=== PATIENT | male | born 1950 | race Caucasian/White ===

== ENCOUNTER → 2020-12-17 | Outpatient (CLI) | payer OTHER ==
[~2020-12-17] MED LIST: ASA81BEC PO; CARVEDILOL12.5 MG PO; ENTRESTO 49 MG1 EACH PO; FUROSEMIDE 20 M20 M1 PO; K-DUR10 MEQ PO; LIPITOR 40 MG T40 M1 PO; PACERONE 200 M200 M1 PO; PROAIR HFA8.5 GM INH; SPIRONOLACTONE25 M1 PO; XARELTO20 MG PO
[2020-12-17 10:02] LABS: HEMATOCRIT 39.8 % (42.0-52.0); HEMOGLOBIN 13.4 gm/dL (14.0-18.0); MCHC 33.6 g/dL (28.0-37.0); MCV 98.2 fL (80.0-100.0); MPV 7.7 fl. (7.2-11.1); RBC 4.06 mil/uL (4.50-6.00); RDW-CV 14.6 % (10.5-14.5); WBC 8.3 thou/uL (4.0-11.0)
[2020-12-17 10:22] LABS: ALBUMIN 3.2 g/dL (3.4-5.0); CALCIUM 8.8 mg/dL (8.5-10.1); CREATININE 1.1 mg/dL (0.6-1.3); POTASSIUM 4.5 mmol/L (3.5-5.1); TOTAL BILIRUBIN 0.5 mg/dL (<0.1-1.0); TOTAL PROTEIN 6.1 g/dL (6.4-8.2)
[2020-12-17 10:28] LABS: URINE BILIRUBIN NEGATIVE (Negative); URINE BLOOD NEGATIVE (Negative); URINE CLARITY CLEAR; URINE COLOR YELLOW; URINE GLUCOSE-RANDOM NEGATIVE (Negative); URINE KETONES NEGATIVE (Negative); URINE LEUKOCYTES-REFLEX NEGATIVE (Negative); URINE NITRITE-REFLEX NEGATIVE (Negative); URINE PROTEIN NEGATIVE (Negative); URINE SPECIFIC GRAVITY <= 1.005 (1.005-1.030); URINE UROBILINOGEN 0.2 E.U./dl (0.2-1.0)
[2020-12-17 10:34] LABS: INR 1.2
== END ==
LOC: M.LAB 09:30
PROVIDERS: ATTEND Orthopaedic Surgery
DX: Z01.812 Encounter for preprocedural laboratory examination (principal); Z20.822 Contact with and (suspected) exposure to COVID-19; M16.11 Unilateral primary osteoarthritis, right hip

== ENCOUNTER → 2020-12-22 | Day surgery (SDC) | payer OTHER ==
[~2020-12-22] VITALS: Ht 175.3 cm; Wt 86.2 kg
[2020-12-22 08:00] VITALS: BP 122/69
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
== END | disposition home or self-care (01) ==
LOC: M.PRE 12-11 10:24 → M.SUR 07:15 → M.PRE 07:15 → M.TBA 07:15 → M.PRE 10:27 → EDSTATUS 12:35 → M.PRE 13:12
PROVIDERS: ATTEND Internal Medicine
DX: M16.11 Unilateral primary osteoarthritis, right hip (principal); Z53.8 Procedure and treatment not carried out for other reasons; I25.119 Atherosclerotic heart disease of native coronary artery with unspecified angina pectoris; I48.0 Paroxysmal atrial fibrillation; I11.0 Hypertensive heart disease with heart failure; I50.9 Heart failure, unspecified; I25.5 Ischemic cardiomyopathy; E78.5 Hyperlipidemia, unspecified; I35.0 Nonrheumatic aortic (valve) stenosis; F17.210 Nicotine dependence, cigarettes, uncomplicated; Z79.899 Other long term (current) drug therapy; Z96.651 Presence of right artificial knee joint; Z96.642 Presence of left artificial hip joint; Z98.890 Other specified postprocedural states; Z95.1 Presence of aortocoronary bypass graft

== ENCOUNTER 2021-01-05 06:51 | Inpatient (IN) | payer OTHER ==
[~2021-01-05] VITALS: Ht 175.3 cm; Wt 86.2 kg
[2021-01-05 07:30] VITALS: BP 94/61
[2021-01-05 17:27] VITALS: BP 102/58
--- NOTE | 2021-01-05 17:36 | NUR ---
PT REMAINED ALERT AND ORIENTED. PT ADMITTED POST OP HIP REPLACEMENT. PAIN ASSESSED AND MEDS GIVEN ORDERED. PT EDUCATED ON USING CALL LIGHT WHEN NEEDING ASSISTANCE AND FALL RISK PRECAUTIONS. PT VERBALIZED UNDERSTANDING. FAMILY AT BEDSIDE.
[2021-01-05 20:21] VITALS: BP 111/59
[2021-01-06] VITALS (9 sets, daily range): BP systolic 90–114; BP diastolic 48–64
[2021-01-06 06:11] LABS: HEMATOCRIT 30.7 % (42.0-52.0); HEMOGLOBIN 10.2 gm/dL (14.0-18.0); MCH 32.2 pg (26.0-34.0); MCHC 33.3 g/dL (28.0-37.0); MCV 96.6 fL (80.0-100.0); MPV 8.3 fl. (7.2-11.1); RBC 3.18 mil/uL (4.50-6.00); RDW-CV 13.7 % (10.5-14.5); WBC 16.1 thou/uL (4.0-11.0)
--- NOTE | 2021-01-06 06:11 | NUR ---
PT GOT UP USING WALKER TO RESTROOM. HE IS ALERT AND ORIENTED, PAIN WELL MANAGED WITH HYDROCODONE. HE IS CURRENTLY ON 2L-O2, ICE PACK TO INCISION SITE, DRESSING C/D/I. SRINI HOSE, FOOT PUMPS AND ICE IN PLACE.
[2021-01-06 06:21] LABS: CALCIUM 7.8 mg/dL (8.5-10.1); CREATININE 0.9 mg/dL (0.6-1.3); POTASSIUM 4.6 mmol/L (3.5-5.1)
[2021-01-06] MEDS ORDERED: METAMUCIL PACK3.4 GM PO (09:51)
[2021-01-06] MEDS ORDERED: COLACE100 MG PO (09:51)
--- NOTE | 2021-01-06 10:21 | NUR ---
HEMOVAC REMOVED PER ORTHO ORDERS
--- NOTE | 2021-01-06 11:29 | NUR ---
PT.TO DISCHARGE TODAY WITH HOME HEALTH PHYSICAL THERAPY. SPOKE WITH HIM AND SON,KWAME. THEY WANTED TO USE [facility]. SPOKE WITH INTAKE AND THEY DO NOT TAKE PTS INSURANCE. [facility] [phone], OUT OF GRAY, GOES TO [facility] AND TAKE HIS INSURANCE. PT.AGREEABLE TO USE [facility] . THEY SAID THEY WOULD RUN HIS INSURANCE AND MAKE SURE THEY TAKE HIS PLAN. FAXED FACE SHEET, H&P,OP REPORT AND DISCHARGE SUMMARY WITH MEDS TO INTAKE [phone]. PT.HAS A FWW FOR HOME USE. IS NORMALLY INDEPENDENT. SON LIVES WITH HIM. PT.SAID HE NORMALLY TAKES XARELTO 20MG DAILY AND ASA DAILY FOR HIS HEART. CM CALLED [facility] AND THEY HAVE PERCOCET PRESCRIPTION FOR PT.E-SCRIPTED BY . PT.INFORMED.
--- NOTE | 2021-01-06 12:00 | NUR ---
[facility] CALLED. SAID THEY RAN HIS INSURANCE INFORMATION AND THEY DO NOT TAKE HIS SPECIFIC PLAN. CM SPOKE IWTH PT.ABOUT DOING OUTPT.THERAPY. HE SAID HE HAD NO ONE TO DRIVE HIM. KERRY CALLED [facility] BACK AND SPOKE WITH ALVA. SHE KNEW OF PT.AND KNEW HE HAD BEEN COMING TO THEIR OUTPT.THERAPY PRE OP. SHE DISCUSSED WITH HER BOSS. SHE SAID THEY WOULD TRY TO RUN HIS INSURANCE. IF THEY DO NOT CONTRACT WITH THEM, THEY WILL TAKE HIM ANYWAY, SINCE IT IS ONLY FOR 2 WEEKS. PT.AND SON INFORMED. THEY WERE APPRECIATIVE.
--- NOTE | 2021-01-06 12:37 | NUR ---
PT GIVEN DISCHARGE INFORMATION. PRESCRIPTIONS SENT TO PHARMACY PER PHYSICIAN. IV REMOVED. PT BELONGINGS GATHERED. HOME HEALTH SET UP. FALL RISK PRECAUTIONS IN PLACE. HOURLY ROUNDING COMPLETED. PT LEFT VIA WHEELCHAIR WITH NURSING STAFF TO HOME WITH HOME HEALTH.
--- NOTE | 2021-01-06 12:48 | OP ---
[facility] [address] [place] [address] OPERATIVE REPORT Name: CHERYLDONOVANAARTI K Room: [address] IN [place]#: [id number] Admission: 01/05/21 Attend Phys: Ashely Arnett Discharge: 01/06/21 Date of : 50 Report #: [id number] THIS REPORT FOR: cc: Main Sanchez MD, Matthew D MD ~ Greiner, Robert F. II DO DATE OF SERVICE: 01/05/2021 PREOPERATIVE DIAGNOSIS: Right hip osteoarthritis. POSTOPERATIVE DIAGNOSIS: Right hip osteoarthritis. PROCEDURE: Right total hip arthroplasty. SURGEON: Jalil Kimball II, DO CONSOLE ASSEMBLER: BECKI Blake ANESTHESIA: General endotracheal. ESTIMATED BLOOD LOSS: 200 mL. ANTIBIOTICS: Ancef preoperatively. DRAINS: Medium Hemovac. COMPLICATIONS: None. CONDITION OF THE PATIENT: Stable to recovery room. IMPLANTS: Listed in operative record and progress note. BRIEF HISTORY: The patient was seen in the preoperative area. Preoperative H and P was performed. Site was marked, questions were answered. Risks and benefits were discussed with the patient in detail about surgery. The patient wished to proceed, assuming all risks. DESCRIPTION OF PROCEDURE: The patient was taken to the operative suite, placed supine on the operating table, given appropriate anesthesia. The patient's operative hip was placed in the [place] table leg parham and sterilely prepped and draped in the supine position. Surgery began by longitudinal incision over the anterior portion of the hip. This was carried down to the subcutaneous tissues. A small blanquita was made in the tensor fascia. It was then split along its fibers and retracted laterally. An H capsulotomy was then performed and careful hemostasis was maintained with electrocautery and Aquamantys[place] [address] OPERATIVE REPORT Name: AARTI QURESHI Room: [address]#: [id number] Admission: 01/05/21 Attend Phys: Ashely Arnett Discharge: 01/06/21 Date of : 50 Report #: [id number] cutting alignment guide was then checked with fluoroscopic guidance. Appropriate cut was made in the head and neck and this was removed. Attention was turned to the acetabulum. Excess labrum was removed as well as osteophytes. It was reamed in sequential fashion up to the appropriate size. This showed excellent bleeding bone and excellent position on fluoroscopic guidance. The acetabular cup was then malleted into position and secured with cancellous screws. Metal liner was then applied. The patient's leg was then rotated and extended in the Alb[place] table to expose the femur. It was then broached in sequential fashion up to appropriate size. Appropriate neck was then trialed with appropriate head length and shown to have excellent fit and fill, and excellent stability of the hip through all range of motion. These trials were then removed. The final stem was then malleted into position and the final head and neck was then malleted in position. It was reduced in appropriate fashion, checked with C-arm for appropriate leg length, shown to have excellent leg length throughout the exam without evidence of dislocation upon range of motion and shuck testing. Wound was then copiously irrigated. Hemostasis was obtained with electrocautery and Aquamantys. Pain cocktail was injected. The H capsulotomy was then closed with #1 Vicryl in [id number] fashion. Tensor fascia was closed with #1 Vicryl in running fashion. Skin was closed with 2-0 Vicryl and running 3-0 Monocryl. Dermabond and sterile dressing applied. The patient transported to recovery room in stable condition. Counts were correct throughout the procedure. <ELECTRONICALLY SIGNED> By: Jalil Kimball II, DO 01/06/21 1248 [id number] 05Jalil Kimball II, DO /nt
== END 2021-01-06 12:39 | disposition home health service (06) | DRG 470 ==
LOC: M.3W 06:51 → M.TBA 06:51 → M.PRE 08:35 → M.ORTHSURG 11:46 → M.3W 16:43
PROVIDERS: Family Medicine; Orthopaedic Surgery; ADMIT Internal Medicine; ATTEND Internal Medicine
PROC: 0SR903A Replacement of Right Hip Joint with Ceramic Synthetic Substitute, Uncemented, Open Approach (ICD-10-PCS; principal; 2021-01-05)
DX: M16.11 Unilateral primary osteoarthritis, right hip (principal); I10 Essential (primary) hypertension; I48.0 Paroxysmal atrial fibrillation; E78.5 Hyperlipidemia, unspecified; E66.01 Morbid (severe) obesity due to excess calories; F17.210 Nicotine dependence, cigarettes, uncomplicated; E78.00 Pure hypercholesterolemia, unspecified; Z68.28 Body mass index [BMI] 28.0-28.9, adult